=== PATIENT | female | born 1950 | race Two or more races ===

== ENCOUNTER → 2017-08-12 | Outpatient (CLI) | payer MEDICARE, OTHER ==
[~2017-08-12] VITALS: Ht 157.5 cm; Wt 60.3 kg
[~2017-08-12] MED LIST: AMOX1TAB16 PO; BACTDSB PO; CEPH500 PO; IBUP-2070 PO; LIDOCAINE HCL 2% 5 ML JELLY TP ONE; LOVA20 PO; MUPI1OIN5 TP; PHEN100C23 PO
[2017-08-12 11:59] VITALS: BP 104/69
== END | disposition home or self-care (01) ==
LOC: HBOWC 10:38
PROVIDERS: ATTEND Emergency Medicine
DX: S81.802D Unspecified open wound, left lower leg, subsequent encounter (principal); X58.XXXD Exposure to other specified factors, subsequent encounter
CPT/HCPCS: 11042; 87070; 87205

== ENCOUNTER → 2017-08-19 | Outpatient (CLI) | payer MEDICARE, OTHER ==
[~2017-08-19] MED LIST changes: -CEPH500 PO; -LIDOCAINE HCL 2% 5 ML JELLY TP ONE
[2017-08-19 12:28] VITALS: BP 134/59
== END | disposition home or self-care (01) ==
LOC: HBOWC 11:11
PROVIDERS: ATTEND Emergency Medicine
DX: S81.852D Open bite, left lower leg, subsequent encounter (principal); W55.01XD Bitten by cat, subsequent encounter
CPT/HCPCS: 11042

== ENCOUNTER → 2017-08-26 | Outpatient (CLI) | payer MEDICARE, OTHER ==
[~2017-08-26] MED LIST changes: +LIDOCAINE HCL 2% 5 ML JELLY TP ONE; -MUPI1OIN5 TP
[2017-08-26 09:17] VITALS: BP 135/60
== END | disposition home or self-care (01) ==
LOC: HBOWC 08:48
PROVIDERS: ATTEND Emergency Medicine
DX: S81.852D Open bite, left lower leg, subsequent encounter (principal); W55.01XD Bitten by cat, subsequent encounter
CPT/HCPCS: 97597

== ENCOUNTER → 2017-09-02 | Outpatient (CLI) | payer MEDICARE, OTHER ==
[~2017-09-02] MED LIST changes: -LIDOCAINE HCL 2% 5 ML JELLY TP ONE
[2017-09-02 08:54] VITALS: BP 135/74
== END | disposition home or self-care (01) ==
LOC: HBOWC 07:59
PROVIDERS: ATTEND Emergency Medicine
DX: S81.852D Open bite, left lower leg, subsequent encounter (principal); W55.01XD Bitten by cat, subsequent encounter
CPT/HCPCS: 97597

== ENCOUNTER → 2017-09-09 | Outpatient (CLI) | payer MEDICARE, OTHER ==
[~2017-09-09] MED LIST changes: -AMOX1TAB16 PO; -BACTDSB PO; +LIDOCAINE HCL 2% 5 ML JELLY TP ONE
[2017-09-09 08:53] VITALS: BP 134/59
== END | disposition home or self-care (01) ==
LOC: HBOWC 07:51
PROVIDERS: ATTEND Emergency Medicine
DX: S81.802D Unspecified open wound, left lower leg, subsequent encounter (principal); S81.852D Open bite, left lower leg, subsequent encounter; W55.01XD Bitten by cat, subsequent encounter
CPT/HCPCS: 97597

== ENCOUNTER → 2017-09-23 | Outpatient (CLI) | payer MEDICARE, OTHER ==
[~2017-09-23] MED LIST changes: -LIDOCAINE HCL 2% 5 ML JELLY TP ONE
[2017-09-23 08:28] VITALS: BP 143/63
== END | disposition home or self-care (01) ==
LOC: HBOWC 07:51
PROVIDERS: ATTEND Emergency Medicine
DX: S81.802D Unspecified open wound, left lower leg, subsequent encounter (principal); W55.01XD Bitten by cat, subsequent encounter